=== PATIENT | female | born 1950 | race Caucasian/White ===

== ENCOUNTER 2019-05-03 06:42 | Day surgery (SDC) | payer MEDICARE ==
[~2019-05-03] VITALS: Ht 167.6 cm; Wt 78.0 kg
[~2019-05-03 06:42] MED LIST: SODIUM CHLORIDE 0.9% 1,000 ML ONE
[2019-05-03] MEDS ORDERED: ALBUTEROL SULFATE 2.5 MG/0.5 ML NEB SOLUTION NEB ONE (06:43)
[2019-05-03] MEDS ORDERED: LIDOCAINE 4% 50 ML SOLUTION TP ONE (06:43)
[2019-05-03] MEDS ORDERED: LIDOCAINE 2% 30 ML JELLY TP ONE (06:43)
[2019-05-03] MEDS ORDERED: BENZOCAINE 20% 50 MCG/SPRAY 57 GM TP ONE (06:43)
[2019-05-03] MEDS ORDERED: SODIUM CHLORIDE 0.9% 1,000 ML IV ONE (07:00)
[2019-05-03] MEDS ORDERED: PROG100C11 PO (07:20)
[2019-05-03] MEDS ORDERED: PREM625 PO (07:20)
[2019-05-03] MEDS ORDERED: TOBR5DRO43 OU (07:20)
[2019-05-03] MEDS ORDERED: ZOLP5 PO (07:20)
[2019-05-03] MEDS ORDERED: ALPR-341 PO (07:20)
[2019-05-03] MEDS ORDERED: PROM118S4 PO (07:20)
[2019-05-03] MEDS ORDERED: AMOX-429 PO (07:20)
[2019-05-03] MEDS ORDERED: SYMB8060 IH (07:20)
[2019-05-03] MEDS ORDERED: MIDAZOLAM HCL 2 MG/2 ML VIAL ONE (08:53)
[2019-05-03] MEDS ORDERED: FentaNYL CITRATE-PF 100 MCG/2 ML VIAL ONE (08:53)
[2019-05-03] MEDS ORDERED: MethylPREDNISolone SOD SUCC 125 MG/2 ML VIAL IVP ONE (09:00)
[2019-05-03] MEDS ORDERED: MethylPREDNISolone SOD SUCC 125 MG/2 ML VIAL ONE (09:30)
[2019-05-03] MEDS ORDERED: OXYGEN THERAPY IH SCH (20:00)
== END 2019-05-03 10:45 | disposition home or self-care (01) ==
LOC: SURGERY 06:42
PROVIDERS: ATTEND Internal Medicine Critical Care Medicine
DX: R05 Cough (principal); R91.1 Solitary pulmonary nodule; J34.89 Other specified disorders of nose and nasal sinuses; J98.8 Other specified respiratory disorders; J38.4 Edema of larynx; B37.0 Candidal stomatitis; J45.909 Unspecified asthma, uncomplicated; M19.90 Unspecified osteoarthritis, unspecified site; Z85.828 Personal history of other malignant neoplasm of skin; Z98.890 Other specified postprocedural states; Z95.0 Presence of cardiac pacemaker; Z72.89 Other problems related to lifestyle; Z79.899 Other long term (current) drug therapy
CPT/HCPCS: 31623; 31624; 71045; 87070; 87101; 87206; 87220; 93005; J2250; J2930; J3010; J7030; 87015; 87205; 88108; 88312